=== PATIENT | female | born 1950 | race Caucasian/White ===

== ENCOUNTER 2017-12-26 16:14 | Emergency (ER) | payer OTHER ==
--- NOTE | 2017-12-26 16:51 | CPEKG ---
Test Reason : OPEN Blood Pressure : / mmHG Vent. Rate : 109 BPM Atrial Rate : 110 BPM P-R Int : 150 ms QRS Dur : 082 ms QT Int : 336 ms P-R-T Axes : 071 091 020 degrees QTc Int : 453 ms Sinus tachycardia Atrial premature complex Right axis deviation Confirmed by Barry Reid ([id number]) on 12/26/2017 4:51:29 PM Referred By: Confirmed By:Barry Reid
[2017-12-26 16:54] LABS: PLATELET COUNT 203 10^3/uL (150-400)
--- NOTE | 2017-12-26 17:33 | EDPHY ---
H & P Time Seen by Provider: 12/26/17 16:30 HPI/ROS: CHIEF COMPLAINT: Palpitations and heart skipping a beat HISTORY OF PRESENT ILLNESS: 67-year-old woman presents with several days of palpitations feeling like her heart is skipping a beat. It was worse today. Presents for evaluation. Not associated with chest pain shortness of breath or syncope. Patient says she does have associated anxiety. Symptoms mild to moderate. Feels like she has to burp which makes stop. She did do a significant cardio class today with a work out of about an hour without any problems. REVIEW OF SYSTEMS: Eye: no change in vision ENT: Little bit of a raspy throat Cardiac: no chest pain or syncope Pulmonary: no cough or SOB, no hemoptysis Abdomen: no vomiting, diarrhea, abdominal pain Musculoskeletal: No leg swelling, does have intermittent pain in her left neck radiating to her head for the last 2 months which is not currently present Skin: no rash Neuro: no headache Constitutional: no fever : no urinary symptoms A comprehensive 10 point review of systems is otherwise negative aside from elements mentioned in the history of present illness. PAST MEDICAL HISTORY: Anxiety, breast cancer 14 years ago, thyroid nodule Social history: Recent travel to [place] 2 weeks ago General Appearance: Alert and conversant, cooperative. Eyes: No scleral icterus. ENT, Mouth: Normal mucous membranes. Respiratory: Normal respiratory effort, breath sounds equal, lungs are clear to auscultation. Cardiovascular: Regular rate and rhythm. Tachycardic without murmur, occasional extrasystole Gastrointestinal: Abdomen is soft and non tender. Neurological: Alert, face symmetric, normal motor and sensory in extremities. Skin: Warm and dry, no rashes. Musculoskeletal: No peripheral edema. No calf tenderness. Psychiatric: Mildly anxious Emergency Department course/MDM: PACs seen on monitor. She did change her Actonel 2 months ago but nothing more recently. 1750: Labs discussed, D-dimer less than 0.1 times age, negative troponin, normal TSH. PAC seen on monitor and discussed with the patient. I think it is most likely she has been having PACs causing her to be quite anxious. I think thyroid storm, acute coronary syndrome, malignant dysrhythmia, pulmonary embolism all unlikely at this point. Patient and spouse state they are comfortable with discharge, outpatient follow- up. Smoking Status: Never smoked Constitutional: Initial Vital Signs Temperature (C) 37.1 C 12/26/17 16:18 Heart Rate 120 H 12/26/17 16:18 Respiratory Rate 18 12/26/17 16:18 Blood Pressure 152/97 H 12/26/17 16:18 O2 Sat (%) 97 12/26/17 16:18 O2 Delivery Mode Room Air Allergies/Adverse Reactions: No Known Allergies Allergy (Verified 12/26/17 16:16) Home Medications: Medication Instructions Recorded Actonel 05/19/09 Buspar (*) 12/26/17 Medical Decision Making - Diagnostics EKG Interpretation: 12-lead EKG interpreted by me; official reading is in computer system. My interpretation is sinus tachycardia 109 with APC and right axis. Differential Diagnosis: Differential considered including but not limited to PAC, PVC, malignant dysrhythmia, ACS, pulmonary embolism, thyroid storm, other metabolic abnormality. - Data Points Laboratory Results: Laboratory Results 12/26/17 16:30 12/26/17 16:30 12/26/17 12/26/17 12/26/17 16:32 16:30 16:30 WBC RBC Hgb Hct MCV MCH MCHC RDW Plt Count MPV Neut % (Auto) Lymph % (Auto) [place] % (Auto) Eos % (Auto) Baso % (Auto) Nucleat RBC Rel Count Absolute Neuts (auto) Absolute Lymphs (auto) Absolute Monos (auto) Absolute Eos (auto) Absolute Basos (auto) Absolute Nucleated RBC Immature Gran % Immature Gran # D-Dimer 0.53 ug/mLFEU H ug/mLFEU (0.00-0.50) Sodium 140 mEq/L mEq/L (135-145) Potassium 3.8 mEq/L mEq/L (3.3-5.0) Chloride 104 mEq/L mEq/L (97-110) Carbon Dioxide 25 mEq/l mEq/l (22-31) Anion Gap 11 mEq/L mEq/L (8-16) BUN 16 mg/dL mg/dL (7-23) Creatinine 0.8 mg/dL mg/dL (0.6-1.0) Estimated GFR > 60 Glucose 126 mg/dL H mg/dL (70-100) Calcium 9.6 mg/dL mg/dL (8.5-10.4) POC Troponin I 0.00 ng/mL ng/mL (0.00-0.08) TSH 0.823 uIU/mL uIU/mL (0.465-4.680) 12/26/17 16:30 WBC 5.62 10^3/uL 10^3/uL (3.80-9.50) RBC 4.53 10^6/uL 10^6/uL (4.18-5.33) Hgb 13.7 g/dL g/dL (12.6-16.3) Hct 41.1 % % (38.0-47.0) MCV 90.7 fL fL (81.5-99.8) MCH 30.2 pg pg (27.9-34.1) MCHC 33.3 g/dL g/dL (32.4-36.7) RDW 11.9 % % (11.5-15.2) Plt Count 203 10^3/uL 10^3/uL (150-400) MPV 10.8 fL fL (8.7-11.7) Neut % (Auto) 73.8 % % (39.3-74.2) Lymph % (Auto) 20.3 % % (15.0-45.0) [place] % (Auto) 4.4 % L % (4.5-13.0) Eos % (Auto) 0.9 % % (0.6-7.6) Baso % (Auto) 0.4 % % (0.3-1.7) Nucleat RBC Rel Count 0.0 % % (0.0-0.2) Absolute Neuts (auto) 4.15 10^3/uL 10^3/uL (1.70-6.50) Absolute Lymphs (auto) 1.14 10^3/uL 10^3/uL (1.00-3.00) Absolute Monos (auto) 0.25 10^3/uL L 10^3/uL (0.30-0.80) Absolute Eos (auto) 0.05 10^3/uL 10^3/uL (0.03-0.40) Absolute Basos (auto) 0.02 10^3/uL 10^3/uL (0.02-0.10) Absolute Nucleated RBC 0.00 10^3/uL 10^3/uL (0-0.01) Immature Gran % 0.2 % % (0.0-1.1) Immature Gran # 0.01 10^3/uL 10^3/uL (0.00-0.10) D-Dimer Sodium Potassium Chloride Carbon Dioxide Anion Gap BUN Creatinine Estimated GFR Glucose Calcium POC Troponin I TSH Point of Care Test Results: Chemistry 12/26/17 16:32 POC Troponin I 0.00 ng/mL ng/mL (0.00-0.08) Departure - Departure Disposition: Home, Routine, Self-Care Clinical Impression: Atrial premature contractions Condition: Good Instructions: Premature Atrial Contractions (ED) Referrals: ANN BARTH [Primary Care Provider] - As per Instructions
[2017-12-26 18:02] VITALS: BP 135/90
== END 2017-12-26 18:03 | disposition home or self-care (01) ==
DX: I49.1 Atrial premature depolarization (principal)
CPT/HCPCS: 84484-PO